=== PATIENT | male | born 1950 | race Caucasian/White ===

== ENCOUNTER → 2017-03-09 | Outpatient (CLI) | payer MEDICARE | LOC: US 13:34 | DX: I70.219 Atherosclerosis of native arteries of extremities with intermittent claudication, unspecified extremity (principal); I70.202 Unspecified atherosclerosis of native arteries of extremities, left leg; I72.4 Aneurysm of artery of lower extremity | CPT/HCPCS: 93925 ==

== ENCOUNTER → 2017-03-26 | Outpatient (CLI) | payer MEDICARE | LOC: CT 06:56 | DX: I72.4 Aneurysm of artery of lower extremity (principal); E11.9 Type 2 diabetes mellitus without complications; I25.10 Atherosclerotic heart disease of native coronary artery without angina pectoris; E78.5 Hyperlipidemia, unspecified; K29.70 Gastritis, unspecified, without bleeding; M19.90 Unspecified osteoarthritis, unspecified site; R73.9 Hyperglycemia, unspecified; K44.9 Diaphragmatic hernia without obstruction or gangrene | CPT/HCPCS: 36415; 75635; 82565; 84520; J7050; Q9963 ==

== ENCOUNTER → 2021-02-11 | Outpatient (CLI) | payer MEDICARE, SELFPAY | LOC: RAD 10:05 | DX: M47.813 Spondylosis without myelopathy or radiculopathy, cervicothoracic region (principal); M47.817 Spondylosis without myelopathy or radiculopathy, lumbosacral region; E11.9 Type 2 diabetes mellitus without complications; E78.5 Hyperlipidemia, unspecified; I71.4 Abdominal aortic aneurysm, without rupture | CPT/HCPCS: 72050; 72072; 72110 ==

== ENCOUNTER → 2021-02-24 | Outpatient (CLI) | payer MEDICARE, SELFPAY | LOC: CT 14:24 | DX: I71.9 Aortic aneurysm of unspecified site, without rupture (principal); I65.23 Occlusion and stenosis of bilateral carotid arteries | CPT/HCPCS: 36415; 74175; 82565; 93880; Q9967 ==

== ENCOUNTER → 2021-08-19 | Outpatient (CLI) | payer MEDICARE | LOC: KOH-I 13:00 | DX: Z12.2 Encounter for screening for malignant neoplasm of respiratory organs (principal); F17.211 Nicotine dependence, cigarettes, in remission | CPT/HCPCS: 71271 ==

== ENCOUNTER → 2021-10-08 | Outpatient (CLI) | payer MEDICARE | LOC: EMI 15:19 | DX: C34.11 Malignant neoplasm of upper lobe, right bronchus or lung (principal) | CPT/HCPCS: 70553; A9577 ==

== ENCOUNTER → 2022-04-30 | Outpatient (CLI) | payer MEDICARE | LOC: KOH-I 04-28 08:00 | DX: I71.4 Abdominal aortic aneurysm, without rupture (principal) | CPT/HCPCS: 93925; 93979 ==

== ENCOUNTER → 2022-05-20 | Outpatient (CLI) | payer MEDICARE | LOC: CT 05-04 15:00 | DX: E11.9 Type 2 diabetes mellitus without complications (principal); E78.5 Hyperlipidemia, unspecified; M79.604 Pain in right leg; C34.91 Malignant neoplasm of unspecified part of right bronchus or lung; M51.9 Unspecified thoracic, thoracolumbar and lumbosacral intervertebral disc disorder; I71.4 Abdominal aortic aneurysm, without rupture; I70.201 Unspecified atherosclerosis of native arteries of extremities, right leg; I70.301 Unspecified atherosclerosis of unspecified type of bypass graft(s) of the extremities, right leg | CPT/HCPCS: 36415; 82565; 84520; Q9967 ==